=== PATIENT | male | born 1985 | race Caucasian/White ===

== ENCOUNTER 2021-12-07 10:56 | Outpatient (CLI) | payer OTHER ==
[~2021-12-07] VITALS: Ht 167.7 cm; Wt 83.3 kg
[2021-12-07] MEDS ORDERED: LIPITOR 10MG10 MG PO (11:42)
[2021-12-07 11:50] LABS: BASO # 0.1 K/mm3 (0.0-0.2); BASO % 0.9 % (0.0-2.0); EOS # 0.1 K/mm3 (0.0-0.7); EOS % 2.6 % (0.0-4.0); GRAN # 2.7 K/mm3 (1.4-6.5); GRAN % 49.5 % (42.2-75.2); HEMATOCRIT 38.7 % (42.0-52.0); HEMOGLOBIN 13.2 g/dl (13.5-18.0); LYMPH % 36.6 % (20.0-51.0); MEAN CELL VOLUME 88 fl (80.0-100.0); MEAN CORPUSCULAR HEMOGLOBIN 30 pg (27-31); MEAN CORPUSCULAR HGB CONC 34 g/dl (33.0-37.0); MEAN PLATELET VOLUME 9.2 fl (7.4-10.4); MONO # 0.5 K/mm3 (0.1-0.6); PLATELET COUNT 269 K/mm3 (130-400); RED BLOOD COUNT 4.41 M/mm3 (4.20-5.60); REDCELL DISTRIBUTION WIDTH-CV 12.6 % (11.5-14.5)
[2021-12-07 11:51] VITALS: BP 118/80; PULSE 61; TEMP 98.4
[2021-12-07 11:58] LABS: CALCIUM 8.9 mg/dL (8.4-10.2); CREATININE, serum 0.92 mg/dL (0.72-1.25)
[2021-12-07 12:00] LABS: INR 1.1 (0.8-3.0); PROTHROMBIN TIME 13.1 SECONDS (9.7-12.8)
[2021-12-07 12:59] VITALS: BP 106/66; PULSE 54
[2021-12-07 13:15] VITALS: BP 112/77; PULSE 44
[2021-12-07] MEDS ORDERED: ASPIRIN 81M81 MG/TA2 PO (13:23)
[2021-12-07 13:30] VITALS: BP 107/72; PULSE 49
[2021-12-07 13:45] VITALS: BP 114/71; PULSE 49
== END 2021-12-07 17:48 ==
LOC: COL.RAD 10:56
PROVIDERS: Internal Medicine Adult Congenital Heart Disease
DX: Q21.12 Patent foramen ovale (principal)
CPT/HCPCS: J2704; J7120